=== PATIENT | female | born 1970 | race African-American/Black ===

== ENCOUNTER 2016-07-18 04:51 | Emergency (ER) | payer MEDICARE, OTHER ==
[~2016-07-18] VITALS: Ht 154.9 cm; Wt 61.2 kg
[~2016-07-18 04:51] MED LIST: ACET-704 PO; ALBU1.25 IH; ASPI1TAB30 PO; CARV6.252 PO; CHOL500015 PO; DIPH25CA58 PO; GLUC1TAB60 PO; HYDR-971 PO; HYDR12.58 PO; HYDR1TAB26 PO; LISI-334 PO; LISI10TA2 PO; LOSA1TAB17 PO; OMEG1CAP4 PO; PROAIR HFA8.5 GM IH; SIMV40TA3 PO; TRAM50TA PO; VITA400C36 PO
[2016-07-18 05:00] VITALS: BP 143/80
[2016-07-18] MEDS ORDERED: KETOROLAC TROMETHAMINE 60 MG/2 ML INJ. IM ONE (05:30)
[2016-07-18] MEDS ORDERED: NAPR500T8 PO (05:38)
--- NOTE | 2016-07-18 05:39 | PHYS DOC ---
Past Medical History Past Medical History: Asthma, GERD, High Cholesterol, Hypertension Additional Past Medical Histor: heart murmur, right arm pain, chronic back pain , chronic knee pain Past Surgical History: Other Additional Past Surgical Histo: RT ROTATOR CUFF REPAIR Alcohol Use: None Drug Use: None Adult General Chief Complaint Chief Complaint: SORE THROAT HPI HPI This is a 46-year-old female presents with significant sore throat for the last several days with difficulty swallowing that she states is secondary to pain. She denies any significant cough. She states she's had subjective fever and chills for she's been taking Tylenol and Motrin. She also states she awoke today with some significant right knee pain and swelling that she's had before. Patient does states she's had history of meniscal tear in that knee and has had injections and has been offered surgery but she states she cannot undergo the surgery because she cannot take time off from work. She denies any traumatic injury to her right knee. Pt states she has been able to bear weight but that it is painful. Review of Systems Review of Systems Constitutional: Has fever, denies chills [] Eyes: Denies change in visual acuity, redness, or eye pain [] HENT: Denies nasal congestion, has sore throat [] Respiratory: Denies cough or shortness of breath [] Cardiovascular: No additional information not addressed in HPI [] GI: Denies abdominal pain, nausea, vomiting, bloody stools or diarrhea [] : Denies dysuria or hematuria [] Musculoskeletal: Denies back pain, has joint pain [] Integument: Denies rash or skin lesions [] Neurologic: Denies headache, focal weakness or sensory changes [] Endocrine: Denies polyuria or polydipsia [] Current Medications Current Medications Current Medications Medications (Trade) Dose Ordered Sig/Eleonora Start Time Stop Time Status Last Admin Dose Admin Ketorolac Tromethamine (Toradol Im) 60 mg 1X ONCE 07/18/16 05:30 07/18/16 05:31 DC 07/18/16 05:24 60 MG Allergies Allergies Allergies Coded Allergies Type Severity Reaction Last Updated Verified hydromorphone HCl Allergy Mild "It didn't agree with me, I was disoriented" Yes codeine Allergy Unknown 03/24/16 Yes meloxicam Allergy Unknown 03/24/16 Yes tramadol Allergy Unknown 03/24/16 Yes Physical Exam Physical Exam Constitutional: Well developed, well nourished, no acute distress, non-toxic appearance. [] HENT: Normocephalic, atraumatic, bilateral external ears normal, oropharynx moist and mildly injected, no oral exudates, nose normal. [] Eyes: PERRLA, EOMI, conjunctiva normal, no discharge. [] Neck: Normal range of motion, no tenderness, supple, no stridor. [] Cardiovascular:Heart rate regular rhythm, no murmur [] Lungs & Thorax: Bilateral breath sounds clear to auscultation [] Abdomen: Bowel sounds normal, soft, no tenderness, no masses, no pulsatile masses. [] Skin: Warm, dry, no erythema, no rash. [] Back: No tenderness, no CVA tenderness. [] Extremities: Mild swelling and tenderness to the right knee, no cyanosis, no clubbing, ROM intact, no edema, no erythema. [] Neurologic: Alert and oriented X 3, normal motor function, normal sensory function, no focal deficits noted. [] Psychologic: Affect normal, judgement normal, mood normal. [] Current Patient Data Vital Signs Vital Signs Date Time Temp Pulse Resp B/P Pulse Ox O2 Delivery O2 Flow Rate FiO2 07/18/16 05:00 99.2 92 16 98 Room Air 99.2 EKG EKG [] Radiology/Procedures Radiology/Procedures [] Course & Med Decision Making Course & Med Decision Making Pertinent Labs and Imaging studies reviewed. (See chart for details) This 46-year-old female who presented with sore throat and some mild right knee pain and swelling had a rapid strep test that was negative. Her sore throat symptoms are likely viral in etiology. Patient is given an IM injection of Toradol without significant relief. I counseled her that she is to remain nonweightbearing as much as possible on that right lower extremity to keep the extremity elevated and iced as much as possible. Prescription for naproxen was provided as well as a work note. Upon my final reassessment, the patient states the Toradol injection did not help and she became very upset and verbally abusive to myself and staff and decided to leave without receiving her discharge paperwork or prescriptions. In light of the fact that the patient is no obvious signs of infection in the and do not see an indication to perform arthrocentesis. I do not see an indication to perform any imaging at this time as she did not acutely injure her knee. Her symptoms are likely due to her chronic knee injury that she can receive close follow-up for. Fritz Disclaimer Fritz Disclaimer This electronic medical record was generated, in whole or in part, using a voice recognition dictation system. Departure Departure Impression: Primary Impression: Pharyngitis Additional Impression: Right knee pain Disposition: HOME, SELF-CARE Admitting Physician: Other Condition: STABLE Referrals: NO PCP (PCP) Patient Instructions: Knee Pain, [id number], RICE - Routine Care for Injuries , [id number], Viral Pharyngitis Additional Instructions: Please take your anti-inflammatories as prescribed and keep your right knee elevated and iced. Avoid any strenuous activities. Return to the ER if you develop any worsening of your symptoms. Follow up with your primary doctor in the next 2-3 days for your knee pain. Scripts Naproxen 500 Mg Tablet.dr500 Mg PO BID #10 Prov:AVE FELICIANO DO 07/18/[address] FELICIANO DO Jul 18, 2016 05:39
[2016-07-18 09:41] LABS: NEGATIVE OBC STREP NEG; POSITIVE OBC STREP POS
== END 2016-07-18 06:03 | disposition home or self-care (01) ==
LOC: ER 04:51
DX: J02.9 Acute pharyngitis, unspecified (principal); M25.561 Pain in right knee; R22.41 Localized swelling, mass and lump, right lower limb; J45.909 Unspecified asthma, uncomplicated; K21.9 Gastro-esophageal reflux disease without esophagitis; E78.00 Pure hypercholesterolemia, unspecified; I10 Essential (primary) hypertension; G89.29 Other chronic pain; Z88.6 Allergy status to analgesic agent; Z88.5 Allergy status to narcotic agent
CPT/HCPCS: 87070; 87880; 96372; 99283; J1885

== ENCOUNTER → 2016-10-27 | Outpatient (CLI) | payer MEDICARE, OTHER ==
[~2016-10-27] MED LIST changes: -CHOL500015 PO; +CHOL500045 PO; +NAPR500T8 PO
--- NOTE | 2016-10-27 08:57 | KCIC ---
MRI right knee without contrast dated 10/27/2016 8:00 AM Indication: Knee pain , history of fall in 2015 , swelling, pain is located medially Comparison: None Technique: Routine multiplanar multisequence imaging performed. Findings: Bone marrow signal is homogeneous. No marrow edema. There is thinning and surface irregularity of the articular cartilage throughout. Focal zone of full-thickness cartilage fissuring at the junction of the medial patellar facet and patellar apex. No significant joint effusion. No intra-articular loose body. No significant popliteal cyst. Anterior cruciate and posterior cruciate ligaments are intact. Medial and lateral collateral complexes are intact. Iliotibial band, popliteus tendon and pes anserine complex within normal limits. Quadriceps and patellar tendon are intact. Mild increased signal within the substance of the distal quadriceps tendon near its medial attachment. No abnormality of the medial or lateral retinaculum. Both menisci are normal in morphology and signal. No articular surface tear or perimeniscal cyst IMPRESSION: 1. No evidence of internal derangement. 2. Chondromalacia patella. 3. Mild distal quadriceps tendinosis. Electronically signed by: Kody Edwards MD (10/27/2016 8:54 AM) [facility]
== END | disposition home or self-care (01) ==
LOC: KCIC MRI 07:38
PROVIDERS: ATTEND Orthopaedic Surgery
DX: M22.41 Chondromalacia patellae, right knee (principal); M25.461 Effusion, right knee; Z91.81 History of falling
CPT/HCPCS: 73721

== ENCOUNTER 2016-12-21 09:04 | Emergency (ER) | payer MEDICARE, OTHER ==
[~2016-12-21] VITALS: Ht 154.9 cm; Wt 56.2 kg
[~2016-12-21 09:04] MED LIST changes: -ASPI1TAB30 PO; +ASPI1TAB31 PO; -LOSA1TAB17 PO; +LOSA1TAB22 PO
[2016-12-21 09:15] VITALS: BP 147/90
[2016-12-21] MEDS ORDERED: METH4TAB2 PO (09:41)
--- NOTE | 2016-12-21 09:41 | PHYS DOC ---
Past Medical History Past Medical History: Asthma, GERD, High Cholesterol, Hypertension Additional Past Medical Histor: heart murmur, right arm pain, chronic back pain , chronic knee pain Past Surgical History: Other Additional Past Surgical Histo: RT ROTATOR CUFF REPAIR Alcohol Use: None Drug Use: None Adult General Chief Complaint Chief Complaint: LOWEREXTREMITY INJURY HPI HPI Patient is a 46 year old female with history of hypertension acid reflex and asthma who presents with moderate right medial and anterior knee pain that began today while she was getting out of bed. She states she twisted her knee. Patient states she has history of knee problems. SShe describes the pain as sharp and throbbing and worse on weight bearing. Orthopedic doctor:Valarie Review of Systems Review of Systems Constitutional: Denies fever or chills [] Musculoskeletal: Right knee pain Integument: Denies rash or skin lesions [] Neurologic: Denies headache, focal weakness or sensory changes [] Current Medications Current Medications Current Medications Medications (Trade) Dose Ordered Sig/Eleonora Start Time Stop Time Status Last Admin Dose Admin Dexamethasone Sodium Phosphate (Decadron) 10 mg 1X ONCE 12/21/16 09:45 12/21/16 09:46 DC 12/21/16 09:36 10 MG Fentanyl Citrate (Fentanyl 2ml Vial) 50 mcg 1X ONCE 12/21/16 09:45 12/21/16 09:46 DC 12/21/16 09:36 50 MCG Allergies Allergies Allergies Coded Allergies Type Severity Reaction Last Updated Verified hydromorphone HCl Allergy Mild "It didn't agree with me, I was disoriented" Yes codeine Allergy Unknown 03/24/16 Yes meloxicam Allergy Unknown 03/24/16 Yes tramadol Allergy Unknown 03/24/16 Yes Physical Exam Physical Exam Constitutional: Well developed, well nourished, no acute distress, non-toxic appearance. [] Skin: Warm, dry, no erythema, no rash. [] Back: No tenderness, no CVA tenderness. [] Extremities: Right knee with no obvious deformity. Mild soft tissue swelling noted on the anterior aspect of the knee. Tenderness on the anterior aspect of the knee as well as medial aspect of the knee. Patient able to hold the right knee out straight. Full range of motion to the right knee including negative Humza sign and negative Sandra's sign negative anterior-posterior drawer sign. +2 right pedal pulse. Cap refill less than 2 seconds the right toes. Neurologic: Alert and oriented X 3, normal motor function, normal sensory function, no focal deficits noted. [] Psychologic: Affect normal, judgement normal, mood normal. [] Current Patient Data Vital Signs Vital Signs Date Time Temp Pulse Resp B/P (MAP) Pulse Ox O2 Delivery O2 Flow Rate FiO2 12/21/16 09:36 18 100 Room Air 12/21/16 09:15 97.6 64 97.6 EKG EKG [] Radiology/Procedures Radiology/Procedures [] Course & Med Decision Making Course & Med Decision Making Pertinent Labs and Imaging studies reviewed. (See chart for details) This is a 46-year-old female patient presenting to the ED today with complaints of right knee pain after twisting it. Right knee x-rays interpreted by radiologist were negative for any acute findings. Patient has crutches at home as well as a knee immobilizer. She was admitted device to use it as needed. She states she has an appointment with Dr. Sheppard this week. Ice elevation is encouraged. Dragon Disclaimer Dragon Disclaimer This electronic medical record was generated, in whole or in part, using a voice recognition dictation system. Departure Departure Impression: Primary Impression: Right knee sprain Disposition: HOME, SELF-CARE Condition: STABLE Referrals: JANELLE SORTO (PCP) MARLEY SHEPPARD MD Call his office tomorrow for follow-up appointment Patient Instructions: Knee Sprain Additional Instructions: You were seen for right knee sprain. Ice and elevate the extremity. Wear your breasts at home as tolerated. We sent you home on a Medrol Dosepak take it as prescribed. Follow-up with orthopedic doctor by calling the office tomorrow to set up a follow-up appointment. Scripts Hydrocodone/Apap 5-325 (NORCO 5-325 TABLET) 1 Each Tablet 1-2 TAB PO Q4-6HRS, #12 TAB Prov: ZAID MOSELEY FIBRE CEMENT MOULDER 12/21/16 Methylprednisolone (MEDROL) 4 Mg Tab.ds.pk 1 PKG PO UD, #1 PKG Prov: MUTUNGA,ZAID FIBRE CEMENT MOULDER 12/21/16 Problem Qualifiers Primary Impression: Right knee sprain Encounter type: initial encounter Involved ligament of knee: unspecified ligament Qualified Codes: S83.91XA - Sprain of unspecified site of right knee , initial encounter ZAID MOSELEY APRN Dec 21, 2016 09:41
[2016-12-21] MEDS ORDERED: fentaNYL PF VIAL 100 MCG/2 ML VIAL IM ONE (09:45)
[2016-12-21] MEDS ORDERED: DEXAMETHASONE SOD PHOS 20 MG/5 ML VIAL. IM ONE (09:45)
--- NOTE | 2016-12-21 10:04 | RAD ---
4 view right knee radiographs 12/21/2016 Clinical history: Right knee pain post twisting injury last night. AP, lateral, oblique and sunrise digital radiographs of the right knee were obtained. No fracture or dislocation right knee is seen. No significant degenerative changes are noted. There is no radiographic evidence of a joint effusion. Impression: No fracture or dislocation of the right knee is seen.
[2016-12-21] MEDS ORDERED: HYDR-971 PO (10:20)
== END 2016-12-21 10:43 | disposition home or self-care (01) ==
LOC: ER 09:04
DX: S83.91XA Sprain of unspecified site of right knee, initial encounter (principal); J45.909 Unspecified asthma, uncomplicated; K21.9 Gastro-esophageal reflux disease without esophagitis; E78.00 Pure hypercholesterolemia, unspecified; I10 Essential (primary) hypertension; G89.29 Other chronic pain; Z88.6 Allergy status to analgesic agent; Z88.5 Allergy status to narcotic agent; X58.XXXA Exposure to other specified factors, initial encounter; Y93.89 Activity, other specified; Y92.89 Other specified places as the place of occurrence of the external cause; Y99.8 Other external cause status
CPT/HCPCS: 73564; 96372; 99284; J1100; J3010

== ENCOUNTER 2016-12-23 07:05 | Emergency (ER) | payer MEDICARE, OTHER ==
[~2016-12-23] VITALS: Ht 165.1 cm; Wt 59.0 kg
[~2016-12-23 07:05] MED LIST changes: +METH4TAB2 PO
--- NOTE | 2016-12-23 07:24 | PHYS DOC ---
Past Medical History Past Medical History: Asthma, GERD, High Cholesterol, Hypertension Additional Past Medical Histor: heart murmur, right arm pain, chronic back pain , chronic knee pain Past Surgical History: Other Additional Past Surgical Histo: RT ROTATOR CUFF REPAIR Alcohol Use: None Drug Use: None Adult General Chief Complaint Chief Complaint: Leg pain, headache HPI HPI Patient is a 46 year old female who presents with ongoing chronic right lower extremity pain. Patient seen by Dr. Sheppard for this ongoing pain. MRI showed that she had a torn meniscus and weekend upper leg. Patient had a knee injection that did temporarily improve her symptoms but now it's worsened again. Patient is not taking anything for pain at home, previously was taking hydrocodone area patient also had an injection for pain 2 days ago in our department and states she's had a headache since. No history DVT reported, pain worsens with movement. Her follow-up appointment with orthopedics as tomorrow. Review of Systems Review of Systems Constitutional: Denies fever or chills [] Eyes: Denies change in visual acuity, redness, or eye pain [] HENT: Denies nasal congestion or sore throat [] Respiratory: Denies cough or shortness of breath [] Cardiovascular: No additional information not addressed in HPI [] GI: Denies abdominal pain, nausea, vomiting, bloody stools or diarrhea [] : Denies dysuria or hematuria [] Musculoskeletal: Denies back pain or joint pain [] Integument: Denies rash or skin lesions [] Neurologic: Denies headache, focal weakness or sensory changes [] Endocrine: Denies polyuria or polydipsia [] Current Medications Current Medications Current Medications Medications (Trade) Dose Ordered Sig/Eleonora Start Time Stop Time Status Last Admin Dose Admin Diphenhydramine HCl (Benadryl) 25 mg 1X ONCE 12/23/16 07:30 12/23/16 07:31 DC 12/23/16 07:33 25 MG Oxycodone/ Acetaminophen (Percocet 10/325) 1 tab 1X ONCE 12/23/16 07:30 12/23/16 07:31 DC 12/23/16 07:33 1 TAB Prochlorperazine Edisylate (Compazine) 10 mg 1X ONCE 12/23/16 07:30 12/23/16 07:31 DC 12/23/16 07:33 10 MG Allergies Allergies Allergies Coded Allergies Type Severity Reaction Last Updated Verified hydromorphone HCl Allergy Mild "It didn't agree with me, I was disoriented" Yes codeine Allergy Unknown 03/24/16 Yes meloxicam Allergy Unknown 03/24/16 Yes tramadol Allergy Unknown 03/24/16 Yes Physical Exam Physical Exam Constitutional: Well developed, well nourished, no acute distress, non-toxic appearance. [] HENT: Normocephalic, atraumatic, bilateral external ears normal, oropharynx moist, no oral exudates, nose normal. [] Eyes: PERRLA, EOMI, conjunctiva normal, no discharge. [] Neck: Normal range of motion, no tenderness, supple, no stridor. [] Cardiovascular:Heart rate regular with regular rhythm, no murmur [] Lungs & Thorax: Bilateral breath sounds clear to auscultation , no wheeze or crackles Abdomen:soft, no tenderness, no masses, no pulsatile masses. [] Skin: Warm, dry, no erythema, no rash. [] Back: No tenderness, no CVA tenderness. [] Extremities: RLE with FROM, no erythema or appreciable effusion, neg ant/post drawer, no varus/valgus instability. DP pulse intact, + homens Neurologic: Alert and oriented X 3, normal motor function, normal sensory function, no focal deficits noted. [] Psychologic: Affect normal, judgement normal, mood normal. [] Current Patient Data Vital Signs Vital Signs Date Time Temp Pulse Resp B/P (MAP) Pulse Ox O2 Delivery O2 Flow Rate FiO2 12/23/16 09:00 62 18 125/72 (89) 100 Room Air 12/23/16 07:24 98.2 98.2 EKG EKG [] Radiology/Procedures Radiology/Procedures venous doppler RLE: Impression: No evidence of deep venous thrombosis identified in the visualized right lower extremity venous system. Course & Med Decision Making Course & Med Decision Making Pertinent Labs and Imaging studies reviewed. (See chart for details) She was given IM Compazine and Benadryl, by mouth Percocet. Pain well controlled. DVT study did not show signs of a blood clot. I counseled patient that any further pain prescriptions would be required to get from her orthopedic or pain specialist. We'll give her 5 tablets to get her through to tomorrow and her doctor's appointments. Patient was agreeable. Dragon Disclaimer Dragon Disclaimer This electronic medical record was generated, in whole or in part, using a voice recognition dictation system. Departure Departure Impression: Primary Impression: Knee pain, right Disposition: 01 HOME, SELF-CARE Condition: IMPROVED Referrals: JANELLE SORTO (PCP) Scripts Hydrocodone/Apap 5-325 (NORCO 5-325 TABLET) 1 Each Tablet 1-2 EACH PO PRN Q6HRS Y for PAIN, #8 as needed for pain Prov: DANIELA REESE MD 12/23/16 DANIELA REESE MD Dec 23, 2016 07:24
[2016-12-23] MEDS ORDERED: PROCHLORPERAZINE 10 MG/2 ML VIAL. IM ONE (07:30)
[2016-12-23] MEDS ORDERED: diphenhydrAMINE 50 MG/ML VIAL IM ONE (07:30)
[2016-12-23] MEDS ORDERED: oxyCODONE/APAP 10/325 1 TAB TABLET PO ONE (07:30)
--- NOTE | 2016-12-23 08:28 | RAD ---
Examination: Ultrasound right lower extremity venous duplex History: History of right leg pain. Comparison: None available Technique: Grayscale, color Doppler 2-D, spectral waveform analysis of the right lower extremity venous system was performed. Findings: The visualized common femoral vein, superficial femoral vein, popliteal vein demonstrate normal compression and augmentation of flow. The visualized calf veins are patent. Impression: No evidence of deep venous thrombosis identified in the visualized right lower extremity venous system.
[2016-12-23] MEDS ORDERED: HYDR-971 PO (08:56)
[2016-12-23 09:00] VITALS: BP 125/72
== END 2016-12-23 09:22 | disposition home or self-care (01) ==
LOC: ER 07:05
DX: M79.604 Pain in right leg (principal); G89.29 Other chronic pain; M25.561 Pain in right knee; E78.00 Pure hypercholesterolemia, unspecified; I10 Essential (primary) hypertension; J45.909 Unspecified asthma, uncomplicated; K21.9 Gastro-esophageal reflux disease without esophagitis; Z88.5 Allergy status to narcotic agent; Z88.6 Allergy status to analgesic agent; Z88.8 Allergy status to other drugs, medicaments and biological substances
CPT/HCPCS: 93971; 96372; 99284; J0780; J1200

== ENCOUNTER 2017-03-29 13:19 | Emergency (ER) | payer MEDICARE, OTHER ==
[2017-03-29] MEDS: KETOROLAC 60 MG/2 ML INJ. IM (13:51)
== END 2017-03-29 13:55 | disposition home or self-care (01) ==
LOC: ER 13:19
DX: K02.9 Dental caries, unspecified (principal); J45.909 Unspecified asthma, uncomplicated; K21.9 Gastro-esophageal reflux disease without esophagitis; E78.00 Pure hypercholesterolemia, unspecified; I10 Essential (primary) hypertension; G89.29 Other chronic pain; Z88.5 Allergy status to narcotic agent; Z88.8 Allergy status to other drugs, medicaments and biological substances
CPT/HCPCS: 96372; 99283-25; J1885

== ENCOUNTER 2017-03-30 10:53 | Emergency (ER) | payer MEDICARE, OTHER ==
[2017-03-30] MEDS: HYDROcodone/APAP 5/325MG 1 TAB TABLET PO (12:14)
== END 2017-03-30 12:24 | disposition home or self-care (01) ==
LOC: ER 10:53
DX: K08.89 Other specified disorders of teeth and supporting structures (principal); G89.29 Other chronic pain; E78.00 Pure hypercholesterolemia, unspecified; I10 Essential (primary) hypertension; J45.909 Unspecified asthma, uncomplicated; K21.9 Gastro-esophageal reflux disease without esophagitis; Z88.5 Allergy status to narcotic agent; Z88.6 Allergy status to analgesic agent
CPT/HCPCS: 99283

== ENCOUNTER 2018-04-26 21:37 | Emergency (ER) | payer MEDICARE, OTHER ==
[~2018-04-26] VITALS: Ht 154.9 cm; Wt 70.3 kg
[~2018-04-26 21:37] MED LIST changes: +ALBU2.5V8 IH; +AMOX875T PO; +CARV6.2511 PO; -CARV6.252 PO; +HYDR-3164 PO; -HYDR-971 PO; -PROAIR HFA8.5 GM IH
[2018-04-26] MEDS ORDERED: IV NORMAL SALINE 1000ML BAG 1,000 ML IV SCH (22:04)
--- NOTE | 2018-04-26 22:12 | PHYS DOC ---
Past Medical History Past Medical History: Asthma, GERD, High Cholesterol, Hypertension Additional Past Medical Histor: heart murmur, right arm pain, chronic back pain , chronic knee pain Past Surgical History: Other Additional Past Surgical Histo: RT ROTATOR CUFF REPAIR Alcohol Use: None Drug Use: None Adult General Chief Complaint Chief Complaint: ABDOMINAL PAIN HPI HPI Patient is a 48-year-old female who presents with complaint of generalized abdominal pain and diarrhea. Patient states that symptoms started at about 8:00 this morning and states that they have just continued throughout the day. She states that she has a history of Crohn's disease and feels like she is having a flare up of her Crohn's. She states that the last flareup was about 2 months ago. She denies any fever and states that she has not been aware of any blood in her stool. She states that she has had some nausea but no vomiting. She rates her pain to be an 8 out of 10. She denies any radiation of the pain. She states that symptoms are worsened if she tries to eat anything. She denies any alleviating factors. Review of Systems Review of Systems Constitutional: Denies fever or chills [] Respiratory: Denies cough or shortness of breath [] Cardiovascular: No additional information not addressed in HPI [] GI: Complains of abdominal pain with nausea and diarrhea. Denies vomiting. [] Integument: Denies rash or skin lesions [] All other systems were reviewed and found to be within normal limits, except as documented in this note. Current Medications Current Medications Current Medications Medications (Trade) Dose Ordered Sig/Eleonora Start Time Stop Time Status Last Admin Dose Admin Info (CONTRAST GIVEN -- Rx MONITORING) 1 each PRN DAILY PRN 04/27/18 00:00 04/29/18 00:00 Iohexol (Omnipaque 300 Mg/ml) 75 ml 1X ONCE 04/27/18 00:00 04/27/18 00:01 DC 04/27/18 00:13 75 ML Methylprednisolone Sodium Succinate (SOLU-Medrol 125MG VIAL) 125 mg 1X ONCE 04/26/18 22:15 04/26/18 22:16 DC 04/26/18 22:24 125 MG Morphine Sulfate (Morphine Sulfate) 4 mg 1X ONCE 04/27/18 01:15 04/27/18 01:16 UNV Ondansetron HCl (Zofran) 4 mg 1X ONCE 04/26/18 22:15 04/26/18 22:16 DC 04/26/18 22:22 4 MG Sodium Chloride 1,000 ml @ 1,000 mls/hr Q1H 04/26/18 22:04 04/26/18 23:03 DC 04/26/18 22:24 1,000 MLS/HR Allergies Allergies Allergies Coded Allergies Type Severity Reaction Last Updated Verified hydromorphone HCl Allergy Mild "It didn't agree with me, I was disoriented" Yes codeine Allergy Unknown 03/24/16 Yes meloxicam Allergy Unknown 03/24/16 Yes tramadol Allergy Unknown 03/24/16 Yes Physical Exam Physical Exam Constitutional: Well developed, well nourished, appears uncomfortable. [] HENT: Normocephalic, atraumatic, bilateral external ears normal, oropharynx moist, no oral exudates, nose normal. [] Eyes: PERRLA, EOMI, conjunctiva normal, no discharge. [] Neck: Normal range of motion, no tenderness, supple, no stridor. [] Cardiovascular: Regular rate and rhythm [] Lungs & Thorax: Bilateral breath sounds clear to auscultation [] Abdomen: Bowel sounds normal, soft, with generalized tenderness. [] Skin: Warm, dry, no erythema, no rash. [] Extremities: No tenderness, no cyanosis, no clubbing, ROM intact, no edema. [] Neurologic: Alert and oriented X 3, normal motor function, normal sensory function, no focal deficits noted. [] Current Patient Data Vital Signs Vital Signs Date Time Temp Pulse Resp B/P (MAP) Pulse Ox O2 Delivery O2 Flow Rate FiO2 04/26/18 22:23 20 98 Room Air 04/26/18 21:45 98.3 70 172/103 (126) 98.3 Lab Values Laboratory Tests Test 04/26/18 21:45 04/26/18 22:00 04/26/18 22:05 04/26/18 22:30 Urine Color Yellow Urine Clarity Clear Urine pH 6.0 Urine Specific [place] 1.020 Urine Protein Negative mg/dL (NEG-TRACE) Urine Glucose (UA) Negative mg/dL (NEG) Urine Ketones (Stick) Negative mg/dL (NEG) Urine Blood Negative (NEG) Urine Nitrite Negative (NEG) Urine Bilirubin Negative (NEG) Urine Urobilinogen Dipstick 0.2 mg/dL (0.2 mg/dL) Urine Leukocyte Esterase Trace (NEG) Urine RBC 0 /HPF (0-2) Urine WBC 1-4 /HPF (0-4) Urine Squamous Epithelial Cells Occ /LPF Urine Bacteria Moderate /HPF (0-FEW) Urine Mucus Slight /LPF White Blood Count 8.9 x10^3/uL (4.0-11.0) Red Blood Count 4.42 x10^6/uL (3.50-5.40) Hemoglobin 13.4 g/dL (12.0-15.5) Hematocrit 40.9 % (36.0-47.0) Mean Corpuscular Volume 93 fL (79-100) Mean Corpuscular Hemoglobin 30 pg (25-35) Mean Corpuscular Hemoglobin Concent 33 g/dL (31-37) Red Cell Distribution Width 14.8 % (11.5-14.5) H Platelet Count 321 x10^3/uL (140-400) Neutrophils (%) (Auto) 63 % (31-73) Lymphocytes (%) (Auto) 31 % (24-48) Monocytes (%) (Auto) 4 % (0-9) Eosinophils (%) (Auto) 1 % (0-3) Basophils (%) (Auto) 2 % (0-3) Neutrophils # (Auto) 5.6 x10^3uL (1.8-7.7) Lymphocytes # (Auto) 2.8 x10^3/uL (1.0-4.8) Monocytes # (Auto) 0.3 x10^3/uL (0.0-1.1) Eosinophils # (Auto) 0.1 x10^3/uL (0.0-0.7) Basophils # (Auto) 0.1 x10^3/uL (0.0-0.2) POC Urine HCG, Qualitative Hcg negative (Negative) Sodium Level 141 mmol/L (136-145) Potassium Level 3.4 mmol/L (3.5-5.1) L Chloride Level 104 mmol/L (98-107) Carbon Dioxide Level 25 mmol/L (21-32) Anion Gap 12 (6-14) Blood Urea Nitrogen 11 mg/dL (7-20) Creatinine 1.1 mg/dL (0.6-1.0) H Estimated GFR (Cockcroft-Gault) 64.4 BUN/Creatinine Ratio 10 (6-20) Glucose Level 125 mg/dL (70-99) H Calcium Level 8.9 mg/dL (8.5-10.1) Total Bilirubin 0.3 mg/dL (0.2-1.0) Aspartate Amino Transferase (AST) 19 U/L (15-37) Alanine Aminotransferase (ALT) 17 U/L (14-59) Alkaline Phosphatase 62 U/L (46-116) Total Protein 7.5 g/dL (6.4-8.2) Albumin 3.3 g/dL (3.4-5.0) L Albumin/Globulin Ratio 0.8 (1.0-1.7) L Lipase 244 U/L (73-393) Laboratory Tests 04/26/18 22:00 Laboratory Tests 04/26/18 22:30 EKG EKG [] Radiology/Procedures Radiology/Procedures [] Impressions: PROCEDURE: CT ABD PELV W/ IV CONTRST ONLY CT abdomen and pelvis with contrast PQRS statement: CT scans at this facility use dose reduction including either automated exposure control, iterative reconstructions, and /or weight based radiation dosing via mA and kV modification when appropriate to reduce radiation dose to as low as reasonably achievable. HISTORY: Abdominal pain, Crohn's disease. TECHNIQUE: Helical CT imaging of the abdomen and pelvis 75 mL Omnipaque 300 intravenous contrast abdomen Abdomen findings: Mild cardiomegaly. Disc bulge L5-S1. Lung bases unremarkable. Liver, gallbladder, pancreas, spleen, adrenal glands and kidneys are unremarkable. No bowel obstruction. Appendix is negative. No inflammatory changes evident. There is mild wall thickening and luminal collapse of the rectosigmoid colon without surrounding edema or hypervascularity evident. No abdominal fluid or adenopathy. No mesenteric inflammatory change. Pelvis findings: Uterus, ovaries, bladder and bones are unremarkable. Rectosigmoid colonic wall thickening without surrounding edema. IMPRESSION: 1. Mild wall thickening and luminal collapse of the rectosigmoid colon which could be due to muscle spasm and underdistention versus sequela of low-grade colitis. No inflammatory changes or obstruction of the small bowel. 2. The appendix is negative. Electronically signed by: Ga Key MD (04/27/2018 12:42 AM) [facility] Course & Med Decision Making Course & Med Decision Making Pertinent Labs and Imaging studies reviewed. (See chart for details) [] Dragon Disclaimer Dragon Disclaimer This electronic medical record was generated, in whole or in part, using a voice recognition dictation system. Departure Departure Impression: Primary Impression: Exacerbation of Crohn's disease Disposition: HOME, SELF-CARE Condition: STABLE Referrals: NO PCP (PCP) Patient Instructions: Crohn's Disease Scripts Prednisone (PREDNISONE) 50 Mg Tablet 1 TAB PO DAILY, #5 TAB Prov: ERICA MCCORMACK Jr. DO 04/27/18 Metronidazole (FLAGYL) 500 Mg Tablet 500 MG PO TID, #30 TAB Prov: ERICA MCCORMACK Jr. DO 04/27/18 Ciprofloxacin Hcl (CIPRO) 500 Mg Tablet 1 TAB PO BID, #20 TAB Prov: ERICA MCCORMACK Jr. DO 04/27/18 Ondansetron Hcl (ZOFRAN) 4 Mg Tablet 4 MG PO PRN TID PRN for NAUSEA, #15 nausea/vomiting Prov: ERICA MCCORMACK Jr. DO 04/27/18 Oxycodone/Apap 5-325 (PERCOCET 5-325 MG TABLET ) 1 Each Tablet 1 EACH PO Q6HRS PRN for PAIN, #12 TAB pain Prov: ERICA MCCORMACK Jr. DO 04/27/18 Problem Qualifiers Primary Impression: Exacerbation of Crohn's disease Digestive disease complication type: without complication Qualified Codes: K50.90 - Crohn's disease, unspecified, without complications ERICA MCCORMACK Jr. DO Apr 26, 2018 22:12
[2018-04-26 22:14] LABS: BASO # 0.1 x10^3/uL (0.0-0.2); BASO % 2 % (0-3); EOS # 0.1 x10^3/uL (0.0-0.7); EOS % 1 % (0-3); HEMATOCRIT 40.9 % (36.0-47.0); HEMOGLOBIN 13.4 g/dL (12.0-15.5); LYMPH # 2.8 x10^3/uL (1.0-4.8); LYMPH % 31 % (24-48); MEAN CORPUSCULAR HEMOGLOBIN 30 pg (25-35); MEAN CORPUSCULAR HGB CONC 33 g/dL (31-37); MEAN CORPUSCULAR VOLUME 93 fL (79-100); MONO # 0.3 x10^3/uL (0.0-1.1); MONO % 4 % (0-9); NEUT # 5.6 x10^3uL (1.8-7.7); NEUT % 63 % (31-73); PLATELET COUNT 321 x10^3/uL (140-400); RED BLOOD COUNT 4.42 x10^6/uL (3.50-5.40); RED CELL DISTRIBUTION WIDTH 14.8 % (11.5-14.5); WHITE BLOOD COUNT 8.9 x10^3/uL (4.0-11.0)
[2018-04-26] MEDS ORDERED: ONDANSETRON PF 4 MG/2 ML VIAL. IV ONE (22:15)
[2018-04-26] MEDS ORDERED: methylPREDNISolone SOD SUCC PF 125 MG/2 ML VIAL. IV ONE (22:15)
[2018-04-26 22:16] LABS: BILIRUBIN,URINE NEGATIVE (NEG); CLARITY,URINE CLEAR; COLOR,URINE YELLOW; NITRITE,URINE NEGATIVE (NEG); PROTEIN,URINE NEGATIVE (NEG-TRACE); UROBILINOGEN,URINE 0.2 mg/dL (0.2 mg/dL)
[2018-04-26 22:20] LABS: BACTERIA,URINE MODERATE /HPF (0-FEW); RBC,URINE 0 /HPF (0-2); SQUAMOUS EPITHELIAL CELL,UR OCC /LPF
[2018-04-26] MEDS: MORPHINE SULFATE 4 MG/ML VIAL. IV/SQ PRN (22:23)
[2018-04-26 22:47] LABS: CALCIUM 8.9 mg/dL (8.5-10.1); CREATININE 1.1 mg/dL (0.6-1.0); GFR 64.4; POTASSIUM 3.4 mmol/L (3.5-5.1)
[2018-04-26 22:52] LABS: ALBUMIN 3.3 g/dL (3.4-5.0); ALBUMIN/GLOBULIN RATIO 0.8 (1.0-1.7); TOTAL BILIRUBIN 0.3 mg/dL (0.2-1.0); TOTAL PROTEIN 7.5 g/dL (6.4-8.2)
[2018-04-27] MEDS ORDERED: CONTRAST GIVEN. MC PRN
[2018-04-27] MEDS ORDERED: IOHEXOL 300 MG/ML 100ML VIAL. IV ONE
--- NOTE | 2018-04-27 00:46 | RAD ---
CT abdomen and pelvis with contrast PQRS statement: CT scans at this facility use dose reduction including either automated exposure control, iterative reconstructions, and /or weight based radiation dosing via mA and kV modification when appropriate to reduce radiation dose to as low as reasonably achievable. HISTORY: Abdominal pain, Crohn's disease. TECHNIQUE: Helical CT imaging of the abdomen and pelvis 75 mL Omnipaque 300 intravenous contrast abdomen Abdomen findings: Mild cardiomegaly. Disc bulge L5-S1. Lung bases unremarkable. Liver, gallbladder, pancreas, spleen, adrenal glands and kidneys are unremarkable. No bowel obstruction. Appendix is negative. No inflammatory changes evident. There is mild wall thickening and luminal collapse of the rectosigmoid colon without surrounding edema or hypervascularity evident. No abdominal fluid or adenopathy. No mesenteric inflammatory change. Pelvis findings: Uterus, ovaries, bladder and bones are unremarkable. Rectosigmoid colonic wall thickening without surrounding edema. IMPRESSION: 1. Mild wall thickening and luminal collapse of the rectosigmoid colon which could be due to muscle spasm and underdistention versus sequela of low-grade colitis. No inflammatory changes or obstruction of the small bowel. 2. The appendix is negative. Electronically signed by: Ga Key MD (04/27/2018 12:42 AM) [facility]
[2018-04-27 00:49] VITALS: BP 179/72
[2018-04-27] MEDS ORDERED: ONDA4TAB7 PO (01:09)
[2018-04-27] MEDS ORDERED: METR500T PO (01:09)
[2018-04-27] MEDS ORDERED: PRED50TA PO (01:09)
[2018-04-27] MEDS ORDERED: CIPR500T94 PO (01:09)
[2018-04-27] MEDS ORDERED: OXYC1TAB15 PO (01:09)
[2018-04-27] MEDS ORDERED: MORPHINE SULFATE 4 MG/ML VIAL. IM ONE (01:15)
[2018-04-27] MEDS: MORPHINE SULFATE 4 MG/ML VIAL. IV/SQ PRN (01:19)
== END 2018-04-27 01:15 | disposition home or self-care (01) ==
LOC: ER 21:37
DX: K50.90 Crohn's disease, unspecified, without complications (principal); I10 Essential (primary) hypertension; E78.00 Pure hypercholesterolemia, unspecified; K21.9 Gastro-esophageal reflux disease without esophagitis; J45.909 Unspecified asthma, uncomplicated; G89.29 Other chronic pain; Z88.5 Allergy status to narcotic agent; Z88.6 Allergy status to analgesic agent; Z88.8 Allergy status to other drugs, medicaments and biological substances
CPT/HCPCS: 36415; 74177; 80053; 81001; 81025; 83690; 85025; 87086; 96374; 96375; 96376; 99284; J2270; J2405; J2930; J7030; Q9967

== ENCOUNTER 2018-05-16 07:42 | Emergency (ER) | payer MEDICARE, MEDICAID ==
[~2018-05-16] VITALS: Ht 154.9 cm; Wt 70.3 kg
[~2018-05-16 07:42] MED LIST changes: +CIPR500T94 PO; +METR500T PO; +ONDA4TAB7 PO; +OXYC1TAB15 PO; +PRED50TA PO
--- NOTE | 2018-05-16 07:50 | PHYS DOC ---
Past Medical History Past Medical History: Asthma, GERD, High Cholesterol, Hypertension, Other Additional Past Medical Histor: heart murmur, right arm pain, chronic back pain , chronic knee pain, CHRONS Past Surgical History: Other Additional Past Surgical Histo: RT ROTATOR CUFF REPAIR Alcohol Use: None Drug Use: None Adult General Chief Complaint Chief Complaint: ABDOMINAL PAIN HPI HPI Patient is a 48 year old with a PMH of high cholesterol, hypertension, and GERD who presents with abdominal pain, nausea and diarrhea that started yesterday morning around 10:30 when she was at work. She reports dark stools with occasional bright red specks of blood. Her abdominal pain is isolated to upper quadrants and worsens with food so she has had very little intake with no vomiting. Her pain is described as dull and achy without radiation. Her acid reflux is well controlled with omeprazole. She has been in the hospital twice for similar complaints over the last 2-3 months and both times was told she had colitis which improved with course of antibiotics. Additionally she reports a long standing history of upper abdominal pain with meals. She denies history of gallstones, abdominal surgeries, recent travel, and being around sick contacts. She has a colonoscopy scheduled for 05/24 as part of a work up for Crohn's disease. Overall she is very anxious as on her Mother's side there is a history of colon cancer and pancreatic cancer. No evidence of malignancy have been found on routine surveillance of her Mother. Despite the nausea she has been adherent with her medications. Review of Systems Review of Systems Constitutional: Denies fevers, chills Eyes: Denies change in visual acuity, redness, or eye pain HENT: Denies nasal congestion or sore throat Respiratory: Denies cough or shortness of breath GI: Reports abdominal pain, nausea, bloody diarrhea : Denies dysuria or hematuria Musculoskeletal: Denies back pain or joint pain Integument: Denies rash or skin lesions Complete systems were reviewed and found to be within normal limits, except as documented in this note. Current Medications Current Medications Current Medications Medications (Trade) Dose Ordered Sig/Eleonora Start Time Stop Time Status Last Admin Dose Admin Dexamethasone Sodium Phosphate (Decadron) 10 mg 1X ONCE 05/16/18 09:30 05/16/18 09:31 DC 05/16/18 09:26 10 MG Famotidine (Pepcid Vial) 20 mg 1X ONCE 05/16/18 08:15 2/17/19 08:21 DC 05/16/18 08:57 20 MG Fentanyl Citrate (Fentanyl 2ml Vial) 50 mcg 1X ONCE 05/16/18 08:15 05/16/18 08:38 DC Morphine Sulfate (Morphine Sulfate) 4 mg 1X ONCE 05/16/18 09:15 05/16/18 09:16 DC 05/16/18 08:57 4 MG Ondansetron HCl (Zofran) 4 mg 1X ONCE 05/16/18 08:15 05/16/18 08:21 DC 05/16/18 08:57 4 MG Sodium Chloride 1,000 ml @ 1,000 mls/hr 1X ONCE 05/16/18 08:15 05/16/18 09:14 DC 05/16/18 08:58 1,000 MLS/HR Allergies Allergies Allergies Coded Allergies Type Severity Reaction Last Updated Verified hydromorphone HCl Allergy Mild "It didn't agree with me, I was disoriented" Yes codeine Allergy Unknown 03/24/16 Yes meloxicam Allergy Unknown 03/24/16 Yes tramadol Allergy Unknown 03/24/16 Yes Physical Exam Physical Exam Constitutional: Well developed, well nourished,appears uncomfortable HENT: Normocephalic, atraumatic, bilateral external ears normal, oropharynx dry Eyes: PERRL, EOMI, conjunctiva normal, no discharge. Neck: Normal range of motion, no tenderness, no LAD Cardiovascular:Heart rate regular rhythm, no murmur Lungs & Thorax: Bilateral breath sounds clear to auscultation Abdomen: soft, tenderness with palpation in upper quadrants, no rebound tenderness Skin: Warm, dry, no erythema, no rash. Extremities: No tenderness, ROM intact, no edema. Neurologic: Alert and oriented X 3, normal motor function, normal sensory function, no focal deficits noted. Psychologic: anxious Current Patient Data Vital Signs Vital Signs Date Time Temp Pulse Resp B/P (MAP) Pulse Ox O2 Delivery O2 Flow Rate FiO2 05/16/18 08:57 17 05/16/18 08:00 98.2 90 133/89 (104) 100 Room Air 98.2 Lab Values Laboratory Tests Test 05/16/18 08:03 05/16/18 08:20 Urine Color Yellow Urine Clarity Clear Urine pH 7.0 Urine Specific [place] 1.020 Urine Protein Negative mg/dL (NEG-TRACE) Urine Glucose (UA) Negative mg/dL (NEG) Urine Ketones (Stick) Negative mg/dL (NEG) Urine Blood Negative (NEG) Urine Nitrite Negative (NEG) Urine Bilirubin Negative (NEG) Urine Urobilinogen Dipstick 1.0 mg/dL (0.2 mg/dL) Urine Leukocyte Esterase Negative (NEG) Urine RBC Occ /HPF (0-2) Urine WBC 1-4 /HPF (0-4) Urine Squamous Epithelial Cells Many /LPF Urine Bacteria Few /HPF (0-FEW) Urine Mucus Marked /LPF White Blood Count 7.0 x10^3/uL (4.0-11.0) Red Blood Count 4.42 x10^6/uL (3.50-5.40) Hemoglobin 13.0 g/dL (12.0-15.5) Hematocrit 40.5 % (36.0-47.0) Mean Corpuscular Volume 92 fL (79-100) Mean Corpuscular Hemoglobin 30 pg (25-35) Mean Corpuscular Hemoglobin Concent 32 g/dL (31-37) Red Cell Distribution Width 14.0 % (11.5-14.5) Platelet Count 277 x10^3/uL (140-400) Neutrophils (%) (Auto) 58 % (31-73) Lymphocytes (%) (Auto) 33 % (24-48) Monocytes (%) (Auto) 9 % (0-9) Eosinophils (%) (Auto) 1 % (0-3) Basophils (%) (Auto) 1 % (0-3) Neutrophils # (Auto) 4.0 x10^3uL (1.8-7.7) Lymphocytes # (Auto) 2.3 x10^3/uL (1.0-4.8) Monocytes # (Auto) 0.6 x10^3/uL (0.0-1.1) Eosinophils # (Auto) 0.0 x10^3/uL (0.0-0.7) Basophils # (Auto) 0.0 x10^3/uL (0.0-0.2) Sodium Level 143 mmol/L (136-145) Potassium Level 3.7 mmol/L (3.5-5.1) Chloride Level 104 mmol/L (98-107) Carbon Dioxide Level 29 mmol/L (21-32) Anion Gap 10 (6-14) Blood Urea Nitrogen 8 mg/dL (7-20) Creatinine 0.8 mg/dL (0.6-1.0) Estimated GFR (Cockcroft-Gault) 93.0 BUN/Creatinine Ratio 10 (6-20) Glucose Level 90 mg/dL (70-99) Lactic Acid Level 1.6 mmol/L (0.4-2.0) Calcium Level 9.4 mg/dL (8.5-10.1) Magnesium Level 1.8 mg/dL (1.8-2.4) Total Bilirubin 0.4 mg/dL (0.2-1.0) Aspartate Amino Transferase (AST) 21 U/L (15-37) Alanine Aminotransferase (ALT) 21 U/L (14-59) Alkaline Phosphatase 63 U/L (46-116) Total Protein 7.7 g/dL (6.4-8.2) Albumin 3.4 g/dL (3.4-5.0) Albumin/Globulin Ratio 0.8 (1.0-1.7) L Lipase 164 U/L (73-393) Laboratory Tests 05/16/18 08:20 Laboratory Tests 05/16/18 08:20 EKG EKG [] Radiology/Procedures Radiology/Procedures [] Course & Med Decision Making Course & Med Decision Making Pertinent Labs reviewed. (See chart for details) Patient is a 48 year old AA female who presents with one day history of crampy abdominal pain and dark colored diarrhea with occasional red flakes of blood on the toilet paper. She has been seed in the ED twice in the last 3-4 months for similar complaints. Most recently seen here on 04/26 and treated for possible colitis with antibiotics and steroids. On work up she is afebrile with WBC count and lactic acid within normal limits. There was no evidence of bleeding hemorrhoids on rectal exam. She may benefit from stool softener as there was a small amount of impacted stool in rectum. It was discussed with the patient that at this time imaging and antibiotics would be deferred as risks outweigh benefits. Symptomatic treatment provided in addition to steroid taper. She has an appointment already scheduled with a GI specialist for further evaluation. Dragon Disclaimer Dragon Disclaimer This electronic medical record was generated, in whole or in part, using a voice recognition dictation system. Departure Departure Impression: Primary Impression: Abdominal pain Additional Impressions: History of colitis Constipation Disposition: HOME, SELF-CARE Condition: STABLE Referrals: NO PCP (PCP) Patient Instructions: Abdominal Pain (Nonspecific), Colitis, Constipation, Adult, [id number], Hemorrhoids, [id number] Additional Instructions: Please follow closely with your GI specialist as previously scheduled for further evaluation and colonoscopy. Scripts Sennosides/Docusate Sodium (Colace 2-in-1 Tablet) 1 Each Tablet 1 EACH PO QHS PRN for CONSTIPATION, #30 TAB Prov: LEXA PEREZ DO 05/16/18 Prednisone (PREDNISONE) 20 Mg Tablet 2 TAB PO DAILY, #8 TAB Start tomorrow Thursday05/17/18. Prov: LEXA PEREZ DO 05/16/18 Hyoscyamine Sulfate (LEVSIN-SL) 0.125 Mg Tab.subl 1-2 TAB SL PRN Q4HRS PRN for PAIN, #20 TAB 1 Refill Prov: LEXA PEREZ DO 05/16/18 Oxycodone/Apap 5-325 (PERCOCET 5-325 MG TABLET ) 1 Each Tablet 1 TAB PO PRN Q6HRS PRN for PAIN, #6 TAB 0 Refills Prov: LEXA PEREZ DO 05/16/18 Ondansetron (ONDANSETRON ODT) 4 Mg Tab.rapdis 1 TAB PO PRN Q6-8HRS PRN for NAUSEA, #16 TAB Prov: LEXA PEREZ DO 05/16/18 Hydrocortisone Acetate (ANUSOL-HC) 25 Mg Supp.rect 1 SUPP RC BID, #10 SUPP Prov: LEXA PEREZ DO 05/16/18 Problem Qualifiers Primary Impression: Abdominal pain Abdominal location: generalized Qualified Codes: R10.84 - Generalized abdominal pain Additional Impressions: Constipation Constipation type: unspecified constipation type Qualified Codes: K59.00 - Constipation, unspecified LEXA PEREZ DO May 16, 2018 07:50
[2018-05-16 08:00] VITALS: BP 133/89
[2018-05-16] MEDS ORDERED: ONDANSETRON PF 4 MG/2 ML VIAL. IV ONE (08:15)
[2018-05-16] MEDS ORDERED: IV NORMAL SALINE 1000ML BAG 1,000 ML IV ONE (08:15)
[2018-05-16] MEDS ORDERED: FAMOTIDINE 20 MG/2 ML VIAL IVP ONE (08:15)
[2018-05-16] MEDS ORDERED: fentaNYL PF VIAL 100 MCG/2 ML VIAL IV ONE (08:15)
[2018-05-16 08:36] LABS: BILIRUBIN,URINE NEGATIVE (NEG); CLARITY,URINE CLEAR; COLOR,URINE YELLOW; NITRITE,URINE NEGATIVE (NEG); PROTEIN,URINE NEGATIVE (NEG-TRACE)
[2018-05-16 08:47] LABS: BACTERIA,URINE FEW /HPF (0-FEW); RBC,URINE OCC /HPF (0-2); SQUAMOUS EPITHELIAL CELL,UR MANY /LPF
[2018-05-16 08:57] LABS: BASO % 1 % (0-3); EOS % 1 % (0-3); HEMATOCRIT 40.5 % (36.0-47.0); LYMPH # 2.3 x10^3/uL (1.0-4.8); LYMPH % 33 % (24-48); MEAN CORPUSCULAR HEMOGLOBIN 30 pg (25-35); MEAN CORPUSCULAR HGB CONC 32 g/dL (31-37); MEAN CORPUSCULAR VOLUME 92 fL (79-100); MONO # 0.6 x10^3/uL (0.0-1.1); MONO % 9 % (0-9); NEUT % 58 % (31-73); PLATELET COUNT 277 x10^3/uL (140-400); RED BLOOD COUNT 4.42 x10^6/uL (3.50-5.40)
[2018-05-16 09:04] LABS: CALCIUM 9.4 mg/dL (8.5-10.1); CREATININE 0.8 mg/dL (0.6-1.0); POTASSIUM 3.7 mmol/L (3.5-5.1)
[2018-05-16 09:11] LABS: ALBUMIN 3.4 g/dL (3.4-5.0); ALBUMIN/GLOBULIN RATIO 0.8 (1.0-1.7); MAGNESIUM 1.8 mg/dL (1.8-2.4); TOTAL BILIRUBIN 0.4 mg/dL (0.2-1.0); TOTAL PROTEIN 7.7 g/dL (6.4-8.2)
[2018-05-16] MEDS ORDERED: MORPHINE SULFATE 4 MG/ML VIAL. IV ONE (09:15)
[2018-05-16] MEDS ORDERED: DEXAMETHASONE SOD PHOS 20 MG/5 ML VIAL. IV ONE (09:30)
[2018-05-16] MEDS ORDERED: PRED20TA PO (09:45)
[2018-05-16] MEDS ORDERED: ONDA4TAB12 PO (09:45)
[2018-05-16] MEDS ORDERED: OXYC1TAB15 PO (09:45)
[2018-05-16] MEDS ORDERED: HYDR25SU18 RC (09:45)
[2018-05-16] MEDS ORDERED: HYOS0.1265 SL (09:45)
[2018-05-16] MEDS ORDERED: SENN-121 PO (09:59)
[2018-05-16 10:46] LABS: FECAL OB PT POSITIVE (NEG)
== END 2018-05-16 10:30 | disposition home or self-care (01) ==
LOC: ER 07:42
DX: K59.00 Constipation, unspecified (principal); R19.7 Diarrhea, unspecified; J45.909 Unspecified asthma, uncomplicated; K21.9 Gastro-esophageal reflux disease without esophagitis; E78.00 Pure hypercholesterolemia, unspecified; I10 Essential (primary) hypertension; G89.29 Other chronic pain; M54.89 Other dorsalgia; M25.569 Pain in unspecified knee; R10.84 Generalized abdominal pain; Z88.5 Allergy status to narcotic agent; Z88.8 Allergy status to other drugs, medicaments and biological substances; Z88.6 Allergy status to analgesic agent
CPT/HCPCS: 36415; 80053; 81001; 82274; 83605; 83690; 83735; 85025; 96361; 96374; 96375; 99283; J1100; J2270; J2405; J3490; J7030